=== PATIENT | female | born 1980 | race Caucasian/White ===

== ENCOUNTER 2018-04-06 15:08 | Emergency (ER) | payer MEDICAID ==
[2018-04-06 16:02] LABS: #Basophils 0.1 thou/uL (0.0-0.2); #Eosinphils 0.3 thou/uL (0.0-0.7); #Lymphocytes 2.3 thou/uL (1.20-3.40); #Monocytes 0.6 thou/uL (0.11-0.59); #Neutrophils 5.3 thou/uL (1.40-6.50); %Basophils 0.6 % (0.0-1.0); %Eosinophils 3.6 % (0.0-10.0); %Monocytes 6.8 % (0.0-10.0); %Neutrophils 61.9 % (42.0-75.0); Hemoglobin 13.7 g/dL (12.0-16.0); Mean Corpuscular HGB CONC 33.7 g/dL (32.0-36.0); Mean Corpuscular Hemoglobin 32.3 pg (27.0-31.0); Mean Corpuscular Volume 95.8 fL (78.0-98.0); Mean Platelet Volume 7.5 fL (7.4-10.4); Platelet Count 296 thou/uL (130-400); RBC Distribution Width 10.8 % (11.5-14.5); Red Blood Cell (RBC) Count 4.23 mill/uL (4.20-5.40); White Blood Cell (WBC) Count 8.6 thou/uL (4.8-10.8)
--- NOTE | 2018-04-06 17:58 | ULT ---
PELVIC ULTRASOUND: 04/06/18 HISTORY: Vaginal bleeding. patient. COMPARISON: None. TECHNIQUE: Transabdominal and endovaginal imaging of the pelvis is performed. Ovaries are interrogated with madison scale, color flow, doppler imaging and spectral waveform analysis. FINDINGS: The patient has a serum beta HCG of 34. Limited evaluation of the uterus and intrauterine structures on the transabdominal images. On the endovaginal images, uterus is identified measuring 4.7 x 6.0 x 8.1 cm. Endometrium is thickene d and has a diameter of 1.8 cm. There is a small anechoic focus in the midline of the endometrium tanner suring 0.4 cm which corresponds to a gestational age of 5 weeks, 1 day. There is no sonographic evide nce of a yolk sac, pole or subchorionic hemorrhage. There is a small amount of fluid at the uterine fundus. Left ovary has a normal echotexture measuring 2.9 x 1.8 x 2.7 cm. There is anechoic focus in the right ovary measuring 2.0 x 2.1 x 2.1 cm. Ovarian cyst is suspected. Overall, the right ovary measures 4.1 x 2.4 x 2.7 cm. OVARIAN DOPPLER: Vascular flow to the left and right ovary. IMPRESSION: 1. Mild anechoic focus in the endometrium which may represent an early gestational sac. There is no sonographic evidence of a yolk sac or pole. Other consideration such as a sonographically o ccult ectopic or missed spontaneous cannot be excluded. Therefore, followup ultras ound and serum beta HCG is recommended. 2. Presumed simple cyst in the right ovary. POS: PRASHANT
== END 2018-04-06 17:52 | disposition home or self-care (01) ==
LOC: ERS 15:08
DX: O20.0 Threatened abortion (principal); O09.521 Supervision of elderly multigravida, first trimester; O99.331 Smoking (tobacco) complicating pregnancy, first trimester; F17.210 Nicotine dependence, cigarettes, uncomplicated; O99.341 Other mental disorders complicating pregnancy, first trimester; F41.9 Anxiety disorder, unspecified; F32.9 Major depressive disorder, single episode, unspecified; Z3A.01 Less than 8 weeks gestation of pregnancy
CPT/HCPCS: 36415; 76856; 84702; 85025

== ENCOUNTER 2018-08-12 12:24 | Emergency (ER) | payer MEDICAID, OTHER ==
[2018-08-12] MEDS ORDERED: Lidocaine 1% (PF) 30 ML VIAL ONE (12:40)
[2018-08-12] MEDS ORDERED: Bacitracin Zinc 1 Packet ONE (13:26)
== END 2018-08-12 13:44 | disposition home or self-care (01) ==
LOC: ERS 12:24
DX: S61.211A Laceration without foreign body of left index finger without damage to nail, initial encounter (principal); F41.9 Anxiety disorder, unspecified; F32.9 Major depressive disorder, single episode, unspecified; F17.210 Nicotine dependence, cigarettes, uncomplicated; W26.8XXA Contact with other sharp object(s), not elsewhere classified, initial encounter
CPT/HCPCS: 12001; 90471; J2001

== ENCOUNTER 2019-05-07 16:30 | Outpatient (CLI) | payer OTHER ==
--- NOTE | 2019-05-07 17:06 | MMO ---
Bilateral MAMMO Bilat Screen [facility]. CLINICAL HISTORY: Patient is 38 years old and is seen for screening. The patient has no family history of breast cancer. The patient has no personal history of cancer. The patient has a history of bilateral Breast reduction in 200 - benign. VIEWS: The views performed were: bilateral craniocaudal with tomosynthesis and bilateral mediolateral oblique with tomosynthesis. This study has been interpreted with the assistance of computer-aided detection. MAMMOGRAM FINDINGS: There are scattered fibroglandular densities. There are no suspicious masses, calcifications or areas of architectural distortion. There are benign appearing calcifications in both breasts. There are no suspicious masses, suspicious calcifications, or new areas of architectural distortion. IMPRESSION: THERE IS NO MAMMOGRAPHIC EVIDENCE OF MALIGNANCY. A ROUTINE FOLLOW-UP MAMMOGRAM AT AGE 41 IS RECOMMENDED. THE RESULTS OF THIS EXAM WERE SENT TO THE PATIENT. ACR BI-RADS Category 2 - Benign finding MAMMOGRAPHY NOTE: 1. A negative mammogram report should not delay a biopsy if a dominant of clinically suspicious mass is present. 2. Approximately 10% to 15% of breast cancers are not detected by mammography. 3. Adenosis and dense breasts may obscure an underlying neoplasm. Reported by: ADRIEN HUYNH MD Electonically Signed: [id number]
== END 2019-05-07 16:31 | disposition home or self-care (01) ==
LOC: BICMAMMO 16:30
PROVIDERS: ATTEND Family Medicine
DX: Z12.31 Encounter for screening mammogram for malignant neoplasm of breast (principal); Z98.82 Breast implant status
CPT/HCPCS: 77063; 77067

== ENCOUNTER 2019-09-25 10:43 | Emergency (ER) | payer MEDICAID, OTHER ==
[2019-09-26 14:30] LABS: SARS-CoV-2 MS2 Positive; SARS-CoV-2 N Gene Positive; SARS-CoV-2 S Gene Positive; SARS-CoV-2 orf1ab Positive
== END 2019-09-25 11:40 | disposition home or self-care (01) ==
LOC: ERS 10:43
DX: U07.1 COVID-19 (principal); F41.9 Anxiety disorder, unspecified; F32.9 Major depressive disorder, single episode, unspecified; F17.210 Nicotine dependence, cigarettes, uncomplicated; Z79.899 Other long term (current) drug therapy
CPT/HCPCS: 87635; 99283; U0003

== ENCOUNTER 2021-02-17 08:53 | Outpatient (CLI) | payer OTHER | END 2021-02-17 08:54 | disposition home or self-care (01) | LOC: BICRAD 08:53 | PROVIDERS: ATTEND Family Medicine | DX: R07.89 Other chest pain (principal); M54.12 Radiculopathy, cervical region | CPT/HCPCS: 71046 ==

== ENCOUNTER 2021-03-04 16:01 | Outpatient (CLI) | payer MEDICAID, OTHER | END 2021-03-04 16:02 | disposition home or self-care (01) | LOC: BICMAMMO 16:01 | PROVIDERS: ATTEND Family Medicine | DX: Z12.31 Encounter for screening mammogram for malignant neoplasm of breast (principal); Z98.890 Other specified postprocedural states | CPT/HCPCS: 77063; 77067 ==

== ENCOUNTER 2023-01-13 12:12 | Outpatient (CLI) | payer OTHER | END 2023-01-13 12:13 | disposition home or self-care (01) | LOC: BICRAD 12:12 | PROVIDERS: ATTEND Nurse Practitioner Family | DX: R07.9 Chest pain, unspecified (principal) | CPT/HCPCS: 71046 ==